=== PATIENT | male | born 1975 | race Caucasian/White ===

== ENCOUNTER 2018-05-10 17:44 | Emergency (ER) | payer BC, OTHER ==
--- NOTE | 2018-05-10 18:23 | ED Physician Documentation ---
PD HPI UPPER EXT INJURY - Stated complaint Stated Complaint: L INDEX FINGER LAC - Chief complaint Chief Complaint: Laceration - History obtained from History obtained from: Patient - History of Present Illness Location: Left, Finger (index finger tip cut with table saw, was using guide to push wood but it bucked and pushed his finger to the blade.) Type of injury: Laceration Timing - onset: Today Timing - details: Abrupt onset Review of Systems Neurologic: denies: Focal weakness, Numbness PD PAST MEDICAL HISTORY - Past Medical History Cardiovascular: None Respiratory: None Neuro: None - Present Medications Home Medications: Ambulatory Orders Medication Instructions Recorded Confirmed Atorvastatin [Lipitor] 05/10/18 - Allergies Allergies/Adverse Reactions: Allergies Allergy/AdvReac Type Severity Reaction Status Date / Time No Known Drug Allergies Allergy Verified 05/10/18 17:52 - Social History Does the pt smoke?: No Smoking Status: Never smoker PD ED PE NORMAL - Vitals Vital signs reviewed: Yes - General General: Alert and oriented X 3, No acute distress, Well developed/nourished - Derm Derm: Normal color, Warm and dry - Extremities Extremities: Other (left index finger tip with avulsion and some iregular tissue edges. It is about 1 cm diameter. It does involve the end of the nailbed but not disrupt it enough to lead to misshape of the bed when it will heal. ) - Neuro Neuro: No motor deficit, No sensory deficit Results - Vitals Vitals: Oxygen O2 Source Room air PD MEDICAL DECISION MAKING - ED course Complexity details: considered differential (just avulsion of tissue at tip, with end of nailbed too, but the shaping of the tissue will heal with good shape of the bed. ), d/w patient - Sepsis Event Vital Signs: Oxygen O2 Source Room air Departure - Departure Disposition: 01 Home, Self Care Clinical Impression: Injury of tip of finger of left hand Qualifiers: Encounter type: initial encounter Qualified Code(s): S69.92XA - Unspecified injury of left wrist, hand and finger(s), initial encounter Condition: Stable Record reviewed to determine appropriate education?: Yes Instructions: ED Avulsion Dermal Follow-Up: Vikas Olmedo DO [Primary Care Provider] - Comments: Leave the initial bandage on for 1-2 days. Then start routine wound care of cleaning with soap and water/ shower, and apply ointment and Band-Aid or dressing. Keep it clean overall. Recheck if signs of infection. Tylenol or ibuprofen if needed for pains. This should heal in okay over the next week or two. As some of the nibbled skin at the tip loosens up, you can just trim off the loose skin. Discharge Date/Time: 05/10/18 19:00
[2018-05-10] MEDS ORDERED: IBUPROFEN 600 MG TABLET PO STA (18:36)
[2018-05-10] MEDS ORDERED: BACITRACIN OINT TOP STA (18:36)
[2018-05-10 19:01] VITALS: BP 121/64
== END 2018-05-10 19:00 | disposition home or self-care (01) ==
LOC: ED 17:44
DX: S61.201A Unspecified open wound of left index finger without damage to nail, initial encounter (principal); W29.8XXA Contact with other powered hand tools and household machinery, initial encounter
CPT/HCPCS: 99282; 99283; A9270